=== PATIENT | male | born 1960 | race Caucasian/White ===

== ENCOUNTER 2016-11-08 15:28 | Emergency (ER) | payer SELFPAY ==
[~2016-11-08] VITALS: Ht 175.3 cm; Wt 90.0 kg
[2016-11-08] MEDS ORDERED: GLIP5TAB12 PO (15:32)
[2016-11-08 23:50] LABS: BASOPHILS % 0.6 % (0.0-2.0); CHLORIDE 104 mEq/L (98-107); EOSINOPHILS % 2.5 % (0.0-5.0); HEMATOCRIT. 38.9 % (42.0-52.0); HEMOGLOBIN. 13.4 g/dL (14.0-18.0); LYMPHOCYTES % 30.9 % (20.0-50.0); MEAN CORPUSCULAR HEMOGLOBIN 32.8 pg (28.0-32.0); MEAN CORPUSCULAR VOLUME 95.1 fL (80.0-94.0); MEAN PLATELET VOLUME 7.7 fl (7.4-10.4); MONOCYTES % 7.3 % (2.0-8.0); NEUTROPHILS % 58.7 % (40.0-76.0); PLATELET 256 x1000/uL (130-400); RED BLOOD CELL COUNT 4.09 mill/uL (4.7-6.1); RED CELL DISTRIBUTION WIDTH 13.1 % (11.6-14.6)
[2016-11-08 23:55] LABS: CARBON DIOXIDE 25 mEq/L (21-32); ETHANOL BLOOD < 10 mg/dL
[2016-11-09] MEDS ORDERED: LORAZEPAM 2MG/ML CPJ IM ONE ×2 (00:45)
[2016-11-09] MEDS ORDERED: LORAZEPAM 2MG/ML CPJ IM SCH (00:51)
[2016-11-09 05:00] VITALS: BP 130/65
== END 2016-11-09 05:53 | disposition home or self-care (01) ==
LOC: ER 15:54
DX: F41.9 Anxiety disorder, unspecified (principal)
CPT/HCPCS: 36415; 80048; 85025; 96372; 99284; G0482; J2060